=== PATIENT | female | born 1990 | race Caucasian/White ===

== ENCOUNTER 2017-05-30 08:51 | Emergency (ER) | payer MEDICAID ==
[2017-05-30] MEDS ORDERED: ONDANSETRON DISINTEGRATING 4 MG TAB PO ONE (09:01)
[2017-05-30] MEDS ORDERED: IBUPROFEN 600 MG TAB PO ONE (09:02)
--- NOTE | 2017-05-30 09:02 | EDPHY ---
H & P HPI/ROS: HPI CHIEF COMPLAINT: Right foot pain HISTORY OF PRESENT ILLNESS: Patient very pleasant 26-year-old female, states last night she got intoxicated alcohol and she somehow injured her right foot. She thinks that she twisted on the stairs. She denies any knee pain, leg pain or ankle pain. Her main pain is over the top of her right foot. She is able to bear weight. She does have swelling and bruising present. She is otherwise neurovascular intact. Sensation intact. Good cap refill. No compartment syndrome. Denies any other areas of injury but Past Medical History: Denies significant medical history Past Surgical History: Denies significant surgical history Social History: Denies daily use drugs alcohol tobacco. Family History: Noncontributory ROS REVIEW OF SYSTEMS: A comprehensive 10 point review of systems is otherwise negative aside from elements mentioned in the history of present illness. Exam Constitutional appears well nontoxic triage nursing summary reviewed, vital signs reviewed, awake/alert. Eyes normal conjunctivae and sclera, EOMI, PERRLA. HENT normal inspection, atraumatic, moist mucus membranes, no epistaxis, neck supple/ no meningismus, no raccoon eyes. Respiratory clear to auscultation bilaterally, normal breath sounds, no respiratory distress, no wheezing. Cardiovascular rate normal, regular rhythm, no murmur, no edema, distal pulses normal. Gastrointestinal soft, non-tender, no rebound, no guarding, normal bowel sounds, no distension, no pulsatile mass. Genitourinary no CVA tenderness. Musculoskeletal no midline vertebral tenderness, full range of motion, no calf swelling, no tenderness of extremities, no meningismus, good pulses, neurovascularly intact. Right lower extremity: Over the top of right foot there is pain present swelling and mild ecchymosis. Mainly over the 3rd and 4th metatarsal. She has got a good pulse. Good cap refill. Warm extremity. Neurovascular intact. Able to have full range of motion. Pain with range of motion. Skin pink, warm, & dry, no rash, skin atraumatic. Neurologic awake, alert and oriented x 3, AAOx3, moves all 4 extremities equally, motor intact, sensory intact, CN II-XII intact, normal cerebellar, normal vision, normal speech. Psychiatric normal mood/affect. Heme/Lymph/Immune no lymphadenopathy. Differential Diagnosis: Includes but is not limited to in a particular order: Foot contusion, metatarsal fracture, soft tissue injury, sprain Medical Decision Making: Plan for this patient x-ray right foot. Ice pack, crutches, anti-inflammatory pain medicine. Re-evaluation: Right foot x-ray; shows a fracture at the base of the 1st metatarsal. Image interpreted by myself. Patient placed in a posterior slab and a stirrup splint. Crutches. Nonweightbearing. Until seen and cleared by podiatry. Source: Patient - Personal History Tetanus Vaccine Date: unsure - Medical/Surgical History Hx Asthma: Yes Hx Chronic Respiratory Disease: No Hx Diabetes: No Hx Cardiac Disease: No Hx Renal Disease: No Hx Cirrhosis: No Hx Alcoholism: No Hx HIV/AIDS: No Hx Splenectomy or Spleen Trauma: No Other PMH: Anxiety. Depression, bipolar, asthma - Social History Smoking Status: Former smoker Constitutional: Initial Vital Signs Temperature (C) 36.6 C 05/30/17 09:02 Heart Rate 110 H 05/30/17 09:02 Respiratory Rate 20 05/30/17 09:02 Blood Pressure 110/98 H 05/30/17 09:02 O2 Sat (%) 98 05/30/17 09:02 O2 Delivery Mode Room Air Allergies/Adverse Reactions: Penicillins Allergy (Verified 02/19/15 23:15) Sulfa (Sulfonamide Antibiotics) Allergy (Verified 02/19/15 23:15) Home Medications: Medication Instructions Recorded Control Pill 1 tab PO DAILY 02/20/15 Hydrocodone/APAP 5/325 [Boss 1 - 2 tab PO Q4H PRN #10 tab 05/30/17 5/325] Ibuprofen [Motrin (*)] 800 mg PO Q6-8PRN #10 tab 05/30/17 Medical Decision Making - Data Points Medications Given: Discontinued Medications Acetaminophen (Tylenol) 500 mg PO EDNOW ONE Stop: 05/30/17 09:05 Last Admin: 05/30/17 09:10 Dose: 500 mg Ondansetron HCl (Zofran Odt) 4 mg PO EDNOW ONE Stop: 05/30/17 09:02 Last Admin: 05/30/17 09:10 Dose: 4 mg Departure - Departure Disposition: Home, Routine, Self-Care Clinical Impression: Foot fracture, right Qualifiers: Encounter type: initial encounter Fracture type: closed Qualified Code(s): S92.901A - Unspecified fracture of right foot, initial encounter for closed fracture Condition: Good Instructions: Foot Fracture in Adults (ED), Foot Contusion (ED) Additional Instructions: 1. Keep your foot elevated. 2. Take Tylenol or Motrin for pain control. 3. Use crutches to help ambulate. DO not bear weight 4. Follow up the foot doctor. Please call their for an appointment. 5. Boss for severe pain, Ibuprofen or Tylenol for mild pain. Referrals: KANDICE RODRIGUEZ [Primary Care Provider] - As per Instructions Augustus Ramirez DPM [Doctor of Podiatric Medicine] - As per Instructions Prescriptions: Hydrocodone/APAP 5/325 [Boss 5/325] 1 - 2 tab PO Q4H PRN #10 tab PRN Reason: Pain, Moderate Ibuprofen [Motrin (*)] 800 mg PO Q6-8PRN #10 tab
[2017-05-30 09:04] VITALS: TEMP 98
[2017-05-30] MEDS ORDERED: ACETAMINOPHEN 500 MG TAB PO ONE (09:04)
[2017-05-30 10:00] VITALS: BP 122/62; PULSE 74; RESP 18; O2SAT 97
== END 2017-05-30 09:58 | disposition home or self-care (01) ==
LOC: CED 08:51
DX: S92.314A Nondisplaced fracture of first metatarsal bone, right foot, initial encounter for closed fracture (principal); J45.909 Unspecified asthma, uncomplicated; Z87.891 Personal history of nicotine dependence; X50.9XXA Other and unspecified overexertion or strenuous movements or postures, initial encounter
CPT/HCPCS: 73630-PO

== ENCOUNTER 2017-12-09 11:49 | Emergency (ER) | payer MEDICAID ==
[2017-12-09 11:56] VITALS: BP 131/71
--- NOTE | 2017-12-09 12:05 | EDPHY ---
H & P Stated Complaint: rash on upper right abd started 3 days ago, pssible shingles Time Seen by Provider: 12/09/17 11:52 HPI/ROS: Chief Complaint: Rash HPI: 27-year-old woman developed a rash on her right torso but 3 days ago. It is mildly painful to the touch. It is not been spreading. Is only in the right side in the front. No fevers or chills. No known new exposures to foods , chemicals, detergents, or plant matter. No cough. No chest pain. No shortness of breath. No nausea or vomiting. ROS: 10 point Review of Systems is negative except as noted in the HPI. PMH: Bipolar disorder Social History: No smoking Family History: non-contributory Physical Exam: General: Awake, alert, no acute distress Skin: Patient has a vesicular rash on an erythematous base in a single dermatomal pattern on her right torso corresponding to approximately T8 distribution. It does not cross midline. It is blanching. Neuro: Cranial nerves 2-12 intact. She has normal strength and sensation. - Personal History LMP (Females 10-55): 1-7 Days Ago Tetanus Vaccine Date: unsure - Medical/Surgical History Hx Asthma: Yes Hx Chronic Respiratory Disease: No Hx Diabetes: No Hx Cardiac Disease: No Hx Renal Disease: No Hx Cirrhosis: No Hx Alcoholism: No Hx HIV/AIDS: No Hx Splenectomy or Spleen Trauma: No Other PMH: Anxiety. Depression, bipolar, asthma - Social History Smoking Status: Former smoker Constitutional: Initial Vital Signs Temperature (C) 36.9 C 12/09/17 11:53 Heart Rate 88 12/09/17 11:53 Respiratory Rate 18 12/09/17 11:53 Blood Pressure 131/71 H 12/09/17 11:53 O2 Sat (%) 96 12/09/17 11:53 O2 Delivery Mode Room Air Allergies/Adverse Reactions: Penicillins Allergy (Verified 12/09/17 11:52) Sulfa (Sulfonamide Antibiotics) Allergy (Verified 12/09/17 11:52) Home Medications: Medication Instructions Recorded Valacyclovir HCl [Valtrex] 1,000 mg PO TID #21 tab 12/09/17 Medical Decision Making ED Course/Re-evaluation: 27-year-old with shingles on her right dorsal. Will start her on acyclovir. I have given her instructions for keeping it covered, good hand washing and avoid other contacts. She will follow up with primary care in a week for any concerns. Departure - Departure Disposition: Home, Routine, Self-Care Clinical Impression: Shingles Condition: Good Instructions: Shingles (ED) Additional Instructions: Follow up with primary care physician in about a week if symptoms are not improving. Keep the rash covered and wash her hands with soap and water frequently. Return to the emergency depart for worsening rash, fevers or chills, or any other concerns. Referrals: [facility],. [Clinic] - As per Instructions Prescriptions: Valacyclovir HCl [Valtrex] 1,000 mg PO TID #21 tab
== END 2017-12-09 12:11 | disposition home or self-care (01) ==
LOC: CED 11:49
DX: B02.9 Zoster without complications (principal); J45.909 Unspecified asthma, uncomplicated; Z87.891 Personal history of nicotine dependence